=== PATIENT | female | born 1980 | race Caucasian/White ===

== ENCOUNTER 2017-06-30 10:59 | Observation (INO) | payer OTHER ==
[~2017-06-30 10:59] MED LIST: CYCL5TAB PO; LISI10TA3 PO; TYLETAB34 PO
[2017-06-30 14:40] VITALS: BP 178/98; PULSE 74; RESP 18; TEMP 98.1; O2SAT 98
[2017-06-30] MEDS ORDERED: SODIUM CHLORIDE 0.9% FLUSH 10 ML FLUSH IV FLUSH PRN (14:45)
[2017-06-30] MEDS ORDERED: ONDANSETRON HCL 4 MG/2 ML VIAL IV PUSH PRN (14:45)
[2017-06-30] MEDS ORDERED: ACETAMINOPHEN/HYDROcodone 325 MG/7.5 MG TAB PO PRN (14:45)
[2017-06-30] MEDS ORDERED: ALPRAZolam 0.25 MG TAB PO PRN (14:45)
[2017-06-30] MEDS ORDERED: ACETAMINOPHEN 500 MG CPLT PO PRN (14:45)
--- NOTE | 2017-06-30 14:53 | HHI.HP ---
HPI Primary Care Physician No Primary Care Physician Chief Complaint CHEST PAIN History of Present Illness This is a 36-year-old female that presents to [facility] ED to evaluate a chest discomfort and was subsequently transported to chest pain center to further evaluate this discomfort. She states that she developed a squeezing sensation around 6:30 last evening sitting at home. Location, left-sided chest. Initially short of breath and nauseous. Found nothing to worsen or improve the symptoms. Then after several hours discomfort change from a squeezing sensation to a tightness. Was a 9 out of 10. Currently discomfort as a 6 out of 10. Recall trauma. Denies recent illness. Denies travel. Denies . Cannot recall prior cardiac workup. Review of Systems General: Patient denies fevers, chills recent, and recent travel HEENT: Patient denies headache, sore throat, difficulty swallowing. Cardiovascular: Has the chest discomfort as mentioned above. Denies sensation of heart beating rapidly or irregularly. No syncope. Denies diaphoresis. Respiratory: Initially short of breath. Denies of breath or inspirational chest discomfort. Denies coughing wheezing or hemoptysis. GI: Initially nauseous. Patient denies vomiting, diarrhea, abdominal pain, bloody stools. Musculoskeletal: Patient denies joint pain or edema. Denies calf pain or edema. Neurovascular: Patient denies numbness, tingling, weakness in extremities. Denies headache. Endocrine: Denies polyuria and polydipsia. Hematologic: Denies easy bruising. Skin: Denies rash or itching. Past Family Social History Allergies: Coded Allergies: No Known Allergies (Unverified Allergy, Unknown, 06/30/17) Past Medical History Hypertension. Noncompliance with medication. Obesity. Chronic back pain. Tobacco abuse. Denies hyperlipidemia, diabetes, and known CAD. Past Surgical History and cholecystectomy. Reported Medications Reported Meds & Active Scripts Active Lisinopril 10 Mg Tab 10 Mg PO DAILY Active Ordered Medications Current Medications Medications (Trade) Dose Ordered Sig/Lynne Route Start Time Stop Time Status Last Admin (NS Flush) 2 ml UNSCH PRN IV FLUSH 06/30/17 14:45 (NS Flush) 2 ml BID IV FLUSH 06/30/17 21:00 (Tylenol) 500 mg Q4H PRN PO 06/30/17 14:45 ([place] 7.5-325 Mg) 1 tab Q4H PRN PO 06/30/17 14:45 (Zofran Inj) 4 mg Q6H PRN IV PUSH 06/30/17 14:45 (Protonix) 40 mg DAILY PO 06/30/17 15:00 (Aspirin) 325 mg DAILY PO 07/01/17 09:00 (Xanax) 0.25 mg Q8H PRN PO 06/30/17 14:45 UNV Family History States her mother had an VT at age 47 and has a stent. Social History Patient is to smoking a couple cigarettes per month or less Patient is to smoking a couple cigarettes per month or less 10 years but prior that would smoke about one half pack of cigarettes daily for 2 years. Rarely has alcohol. Denies illicit drugs. She is with children. 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 Physical Exam Vital Signs Vital Signs Date Time Temp Pulse Resp B/P (MAP) Pulse Ox O2 Delivery O2 Flow Rate FiO2 06/30/17 14:40 98.1 74 18 178/98 (124) 98 Physical Exam GENERAL: This is a well-nourished, well-developed patient, in no apparent distress. Patient speaks in clear complete sentences. Patient is pleasant. Patient is obese. Patient examined with female nurse straw hat washer operator present at bedside. HEENT: Head is atraumatic and normocephalic. Neck is supple without lymphadenopathy and trachea is midline. No JVD or carotid bruits. CARDIOVASCULAR: Regular rate and rhythm without murmurs, gallops, or rubs. RESPIRATORY: Clear to auscultation. Breath sounds equal bilaterally. No wheezes , rales, or rhonchi. Chest wall is tender worsening her symptoms. No use of accessory muscles. GASTROINTESTINAL: Abdomen is nontender, nondistended. Abdomen soft. No obvious pulsatile mass or bruit. No CVA tenderness. Strong femoral pulses bilaterally. Normal bowel sounds in all quadrants. MUSCULOSKELETAL: Patient is moving upper and lower extremities freely. No calf tenderness or edema, no Homans sign. Strong pulses in upper and lower extremities. NEUROLOGICAL: Patient is alert and oriented. Cranial nerves 2-12 are grossly intact. No focal deficits and speech is clear. SKIN: No rash and turgor is normal. Imaging Chest x-ray read by radiologist as nothing acute. Course EKGs are sinus rhythm without significant ST segment depressions or elevations. Caprini VTE Risk Assessment Caprini VTE Risk Assessment: No/Low Risk (score <= 1) Caprini Risk Assessment Model Point Value = 1 Point Value = 2 Point Value = 3 Point Value = 5 Age 41-60 Minor surgery BMI > 25 kg/m2 Swollen legs Varicose veins or History of unexplained or recurrent spontaneous Oral contraceptives or hormone replacement Sepsis (< 1 month) Serious lung disease, including pneumonia (< 1 month) Abnormal pulmonary function Acute myocardial infarction Congestive heart failure (< 1 month) History of inflammatory bowel disease Medical patient at bed rest Age 61-74 Arthroscopic surgery Major open surgery (> 45 min) Laparoscopic surgery (> 45 min) Malignancy Confined to bed (> 72 hours) Immobilizing plaster cast Central venous access Age >= 75 History of VTE Family history of VTE Factor V Leiden Prothrombin [id number] Lupus anticoagulant Anticardiolipin antibodies Elevated serum homocysteine Heparin-induced thrombocytopenia Other congenital or acquired thrombophilia Stroke (< 1 month) Elective arthroplasty Hip, pelvis, or leg fracture Acute spinal cord injury (< 1 month) Prophylaxis Regimen Total Risk Factor Score Risk Level Prophylaxis Regimen 0-1 Low Early ambulation 2 Moderate Order ONE of the following: *Sequential Compression Device (SCD) *Heparin 5000 units SQ BID 3-4 Higher Order ONE of the following medications: *Heparin 5000 units SQ TID *Enoxaparin/Lovenox 40 mg SQ daily (WT < 150 kg, CrCl > 30 mL/min) *Enoxaparin/Lovenox 30 mg SQ daily (WT < 150 kg, CrCl > 10-29 mL/min) *Enoxaparin/Lovenox 30 mg SQ BID (WT < 150 kg, CrCl > 30 mL/min) AND/OR *Sequential Compression Device (SCD) 5 or more Highest Order ONE of the following medications: *Heparin 5000 units SQ TID (Preferred with Epidurals) *Enoxaparin/Lovenox 40 mg SQ daily (WT < 150 kg, CrCl > 30 mL/min) *Enoxaparin/Lovenox 30 mg SQ daily (WT < 150 kg, CrCl > 10-29 mL/min) *Enoxaparin/Lovenox 30 mg SQ BID (WT < 150 kg, CrCl > 30 mL/min) AND *Sequential Compression Device (SCD) Assessment and Plan Assessment and Plan * Chest pain: Patient has had serial cardiac enzymes and EKGs for ruling out purposes. She will be evaluated by Dr. Rosado cardiology and the chest pain center. Offered doing Efren protocol ETT the patient states she cannot go on a treadmill secondary to chronic back pain. Subsequently a Lexiscan has been ordered. Patient likely be discharged home if stress test is nonischemic with instructions to follow-up with PCP. * Hypertension: Likely start amlodipine. Patient to follow-up with PCP and take her medications as instructed. * Obesity: Patient counseled on importance of diet, exercise, and weight loss. * Tobacco abuse: Patient counseled on the importance of smoking cessation. Patient is stable at this time. She is agreeable to this plan. Agapito Maria Jun 30, 2017 14:53
[2017-06-30] MEDS ORDERED: PANTOPRAZOLE SOD 40 MG DELAYED RELEASE TAB PO SCH (15:00)
[2017-06-30] MEDS ORDERED: amLODIPine BESYLATE 5 MG TAB PO SCH (15:15)
[2017-06-30] MEDS ORDERED: REGADENOSON INJ 0.4 MG/5 ML SYR ONE (16:40)
[2017-06-30] MEDS ORDERED: AMLO5TAB2 PO (16:41)
--- NOTE | 2017-06-30 16:42 | HHI.DCPOC ---
Discharge Care Plan Diagnosis: (1) Chest pain (2) Hypertension (3) Tobacco abuse (4) Obesity Goals to Promote Your Health * To prevent worsening of your condition and complications * To maintain your health at the optimal level Directions to Meet Your Goals Take your medications as prescribed Follow your dietary instruction Follow activity as directed Keep your appointments as scheduled Take your immunizations and boosters as scheduled If your symptoms worsen call your PCP, if no PCP go to Urgent Care Center or Emergency Room Smoking is Dangerous to Your Health. Avoid second hand smoke Call the 24-hour hour crisis hotline for domestic abuse at Agapito Maria Jun 30, 2017 16:42
--- NOTE | 2017-06-30 17:59 | RADRPT ---
EXAM DATE/TIME: 06/30/2017 16:22 [facility] COMPARISON: No previous studies available for comparison. INDICATIONS : Mid chest pain for one day. Angina. DOSE: 35.0 mCi Tc99m Myoview at stress. 11.0 mCi Tc99m Myoview at rest. 0.4 mg Lexiscan STRESS SYMPTOMS: Shortness of breath. EJECTION FRACTION: 51% MEDICAL HISTORY : Hypertension. SURGICAL HISTORY : section. Cholecystectomy. ENCOUNTER: Initial ACUITY: 1 day PAIN SCALE: 3/10 LOCATION: Midsternal chest TECHNIQUE: The patient underwent pharmacologic stress with infusion of prescribed dose. Continuous ECG tracing was monitored during stress. Gated SPECT imaging was performed after stress and conventional SPECT i maging was performed at rest. The examination was performed on a SPECT/CT scanner, both attenuation and non-corrected datasets were reviewed. FINDINGS: DISTRIBUTION: The best perfused myocardium is the septum at stress. There is minimal redistribution in the anterio r lateral wall extending from the mid ventricle wall to apex. Moderate gut activity does obscure the inferior wall. GATED STUDY: There is intact wall motion and thickening without hypokinetic or dyskinetic segments. The ejection fraction is 51%. CONCLUSION: Stress-induced ischemia anterior myocardium beginning in mid-ventricular wall extending to apex. RISK CATEGORY: Low (<1% Annual Mortality Rate) Josef Schmidt MD FACR on June 30, 2017 at 17:55 Board Certified Radiologist. This report was verified electronically.
--- NOTE | 2017-06-30 18:20 | TR ---
Date Performed: 06/30/2017 Time Performed: 16:39:30 DOCTOR: Sunshine Rosado DRUG LIST: CLINICAL HISTORY: ANGINA REASON FOR TEST: Angina REASON FOR ENDING: OBSERVATION: CONCLUSION: Lexiscan stress test was performed under standard four minute protocol. Radionuclid e was injected one minute prior to ending the test. No electrocardiographic abormalities were present to suggest ischemia. Nuclear imaging and interpretation are pending. COMMENTS:
[2017-06-30] MEDS ORDERED: SODIUM CHLORIDE 0.9% FLUSH 10 ML FLUSH IV FLUSH SCH (21:00)
[2017-07-01] MEDS ORDERED: ASPIRIN 325 MG TAB PO SCH (09:00)
== END 2017-06-30 19:36 | disposition home or self-care (01) ==
LOC: NEDDLT 14:09 → NEPHCDU 14:19
PROVIDERS: ADMIT Internal Medicine Interventional Cardiology; ATTEND Internal Medicine Interventional Cardiology
DX: R07.9 Chest pain, unspecified (principal); I10 Essential (primary) hypertension; I20.9 Angina pectoris, unspecified; R06.02 Shortness of breath; R11.0 Nausea; M54.9 Dorsalgia, unspecified; G89.29 Other chronic pain; E66.9 Obesity, unspecified; F17.210 Nicotine dependence, cigarettes, uncomplicated
CPT/HCPCS: 71010; 78452; 80053; 81001; 82550; 83735; 83880; 84484; 84702; 85025; 85379; 85610; 85730; 93005; 93017; 96374; A9502; G0378; J1885; J2405; J2785